=== PATIENT | female | born 1990 | race African-American/Black ===

== ENCOUNTER 2017-02-28 14:24 | Emergency (ER) | payer SELFPAY ==
[~2017-02-28] VITALS: Ht 172.7 cm; Wt 52.2 kg
--- NOTE | 2017-02-28 14:53 | PHYS DOC ---
Adult General Chief Complaint Chief Complaint: DENTAL PROBLEM HPI HPI Patient is a 26 year old female who presents with complaint of dental pain for the past 2 days. Patient states that she has a left mandibular molar that is broken and has been causing severe pain over the past 2 days. Patient has had history of dental caries and has had previous dental removal on the same side. Patient rates her pain currently is 10 out of 10. The patient states that she has had no fevers but has had swelling along the left side of her jaw. The patient states that the pain radiates towards her left ear. Patient states that she took a hydrocodone pill that was given to her by another individual states this did not help with her symptoms. Review of Systems Review of Systems Constitutional: Denies fever or chills [] Eyes: Denies change in visual acuity, redness, or eye pain [] HENT: Dental pain[] Respiratory: Denies cough or shortness of breath [] Cardiovascular: Denies chest pain or edema[] GI: Denies abdominal pain, nausea, vomiting, bloody stools or diarrhea [] : Denies dysuria or hematuria [] Musculoskeletal: Denies back pain or joint pain [] Integument: Denies rash or skin lesions [] Neurologic: Denies headache, focal weakness or sensory changes [] Current Medications Current Medications Current Medications Medications (Trade) Dose Ordered Sig/Raulito Start Time Stop Time Status Last Admin Dose Admin Bupivacaine HCl (Sensorcaine Mpf 0.5%) 10 ml 1X ONCE 02/28/17 15:10 02/28/17 15:11 Lidocaine HCl 20 ml 1X ONCE 02/28/17 15:10 02/28/17 15:11 Allergies Allergies Allergies Coded Allergies Type Severity Reaction Last Updated Verified No Known Drug Allergies 02/28/17 No Physical Exam Physical Exam Constitutional: Alert, afebrile, appears in moderate to severe discomfort. [] HENT: Normocephalic, atraumatic, bilateral external ears normal, oropharynx moist, multiple dental caries, tooth #18 with severe dental decay, tender to palpation, no gingival fluctuance noted, no significant jaw swelling noted, no oral exudates, nose normal. [] Eyes: PERRLA, EOMI, conjunctiva normal, no discharge. [] Neck: Normal range of motion, no tenderness, supple, no stridor. [] Cardiovascular:Heart rate regular rhythm, no murmur [] Lungs & Thorax: Bilateral breath sounds clear to auscultation [] Abdomen: Bowel sounds normal, soft, no tenderness, no masses, no pulsatile masses. [] Skin: Warm, dry, no erythema, no rash. [] Back: No tenderness, no CVA tenderness. [] Extremities: No tenderness, no cyanosis, no clubbing, ROM intact, no edema. [] Neurologic: Alert and oriented X 3, normal motor function, normal sensory function, no focal deficits noted. [] Current Patient Data Vital Signs Vital Signs Date Time Temp Pulse Resp B/P (MAP) Pulse Ox O2 Delivery O2 Flow Rate FiO2 02/28/17 14:25 98.6 83 20 98 Room Air Lab Results Not performed EKG EKG Not performed[] Radiology/Procedures Radiology/Procedures Not performed[] Course & Med Decision Making Course & Med Decision Making Pertinent Labs and Imaging studies reviewed. (See chart for details) Patient was given options of pain control including oral hydrocodone versus dental block. After careful consideration, the patient decided to have a dental block performed. The patient gave verbal consent for the procedure. A 10 mL syringe was used with a one-to-one solution of lidocaine 1%/bupivacaine 0.5%. Landmarks were identified prior to injection. A total of 7 mL of anesthetic was injected along the inner aspect of the left mandible with satisfactory results. No complications occurred during the procedure. The patient was provided with prescriptions for hydrocodone and penicillin VK. Advised follow-up with the patient's dentist in the next 2-3 days for reevaluation. Advised return emergency department for any worsening symptoms. Patient was understanding and in agreement with treatment plan. Dragon Disclaimer Dragon Disclaimer This chart was dictated in whole or in part using Voice Recognition software in a busy, high-work load, and often noisy Emergency Department environment. It may contain unintended and wholly unrecognized errors or omissions. Departure Departure: Impression: Primary Impression: Dental caries Additional Impression: Pain, dental Disposition: 01 HOME, SELF-CARE Condition: IMPROVED Referrals: PCPMACIEJ (PCP) Patient Instructions: Dental Pain Additional Instructions: Follow-up in 2-3 days with your dentist for reevaluation. Return to emergency department for any worsening symptoms. Scripts Penicillin V Potassium (PENICILLIN V POTASSIUM) 500 Mg Tablet 1 TAB PO QID, #40 TAB Prov: JANET ESCUDERO MD 02/28/17 Hydrocodone Bit/Acetaminophen (NORCO 5-325 TABLET) 1 Each Tablet 1-2 TAB PO Q4-6HRS Y for PAIN, #20 TAB Prov: JANET ESCUDERO MD 02/28/17 Problem Qualifiers JANET ESCUDERO MD Feb 28, 2017 14:53
[2017-02-28] MEDS ORDERED: BUPIVACAINE MPF 0.5% 30 ML VIAL. IJ ONE (15:00)
[2017-02-28] MEDS ORDERED: BUPIVACAINE MPF 0.5% 10 ML VIAL. IJ ONE (15:10)
[2017-02-28] MEDS ORDERED: LIDOCAINE 1% Multi-Dose 20 ML VIAL. IJ ONE (15:10)
[2017-02-28] MEDS ORDERED: PENI500T PO (15:12)
[2017-02-28] MEDS ORDERED: HYDR-971 PO (15:12)
[2017-02-28 15:15] VITALS: BP 108/72
== END 2017-02-28 15:15 | disposition home or self-care (01) ==
LOC: ER 14:24
DX: K02.9 Dental caries, unspecified (principal); M26.69 Other specified disorders of temporomandibular joint
CPT/HCPCS: 64400; 99284; J3490

== ENCOUNTER 2017-03-02 00:59 | Emergency (ER) | payer SELFPAY ==
[~2017-03-02] VITALS: Ht 172.7 cm; Wt 50.3 kg
[~2017-03-02 00:59] MED LIST: HYDR-971 PO; PENI500T PO
--- NOTE | 2017-03-02 01:55 | PHYS DOC ---
General Chief Complaint: DENTAL PROBLEM Stated Complaint: DENTAL PAIN Time Seen by MD: 01:19 Source: patient, old records Exam Limitations: no limitations Problems: History of Present Illness Initial Comments Pt is 26/F to ED requesting pain control. Pt seen here two days ago for tooth #18 pain/caries, dental block performed with good analgesia discharged home with norco 5mg and PCN. Pt states she was seen earlier today at "hospital" with nausea and abdominal discomfort, it was determined that she took meds without food. Since then pt says she's been scared to take norco, has plenty left but fears she will get sick. No fever/chills/malaise or vomitting, had nausea only with meds as stated. VSS in ED, she is requesting analgesia. Has not scheduled dental evaluation. Timing/Duration: other Severity: severe Location: dental Prearrival Treatment: over the counter meds, prescription meds Modifying Factors: improves with other Associated Symptoms: tooth pain Allergies: Coded Allergies: No Known Drug Allergies (Unverified , 03/02/17) Past Medical History Medical History: other (anemia) Surgical History: other (TL) Social History Smoker: cigarettes Alcohol: none Drugs: none Constitutional: denies chills, denies diaphoresis, denies fever, denies malaise Ears: denies dizziness, denies pain, denies tinnitus Nose: denies clots, denies congestion, denies epistaxis Mouth: see HPI, denies swelling, denies purulent discharge Throat: denies pain, denies swelling, denies neck stiffness, denies painful swallowing, denies difficulty with fluids Respiratory: denies cough, denies shortness of breath Cardiovascular: denies chest pain, denies palpitations Gastrointestinal: see HPI Neurological: denies headache, denies numbness, denies paresthesia Physical Exam General Appearance: moderate distress, thin Eyes: bilateral eye normal inspection, bilateral eye PERRL, bilateral eye EOMI Ears: bilateral ear auricle normal, bilateral ear canal normal, bilateral ear TM normal Nose: normal inspection Mouth/Throat: other (tooth #18 severe decay, no gingival swell/purulence/bony TTP airway patent) Neck: non-tender, supple, trachea midline Cardiovascular/Respiratory: normal peripheral pulses, normal breath sounds, no respiratory distress Neurologic/Psychiatric: 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 Pt obviously uncomfortable, states pain 10/10. No evidence osteomyelitis, offered IM meds if pt could get a ride home which she did. Dilaudid 1mg and toradol 60mg IM with resolution of pain pt left with friend driving her home. 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 Pt expressed agreement/understanding. Advised to stop smoking. Departure Time of Disposition: 01:49 Disposition: 01 HOME, SELF-CARE Diagnosis: pain control, dental caries Condition: GOOD Patient Instructions: Dental Caries Additional Instructions: No driving or operating machinery while under influence of sedative medications. OTC ibuprofen 600mg every 6 hours. Continue current penicillin and norco. Aggressive hydration with gatorade, water. Rx: zofran odt (this medication takes about an hour to take effect) To avoid GI symptoms you've experienced with medications: Take medications an hour apart. Take medications with food. Not a few crackers, but half a sandwich or equivalent to avoid adverse reaction you described. No hydrocodone within 2 hours of ED discharge to avoid reaction with pain medication received in ED. You must follow up with a dentist to resolve this condition. Antibiotics and pain medications will help you get by but will not treat this condition. Call Friday morning to schedule "next available appointment." Return to ED with new or changing symptoms as discussed. DIRK CHADWICK DO Mar 02, 2017 01:55
[2017-03-02] MEDS ORDERED: HYDROmorphone PF 1 MG/ML DISP.SYRIN IM ONE (02:00)
[2017-03-02] MEDS ORDERED: KETOROLAC 60 MG/2 ML VIAL. IM ONE (02:00)
[2017-03-02] MEDS ORDERED: ONDA4TAB10 PO (02:04)
[2017-03-02 02:10] VITALS: BP 114/80
[2017-03-02] MEDS ORDERED: ONDANSETRON 4MG ODT 4TABLET STARTPACK. PO ONE (02:30)
== END 2017-03-02 02:14 | disposition home or self-care (01) ==
LOC: ER 00:59
DX: K02.9 Dental caries, unspecified (principal); F17.210 Nicotine dependence, cigarettes, uncomplicated; Z86.2 Personal history of diseases of the blood and blood-forming organs and certain disorders involving the immune mechanism
CPT/HCPCS: 96372; 99284; J1170; J1885; Q0162

== ENCOUNTER 2017-07-25 16:37 | Emergency (ER) | payer SELFPAY ==
[~2017-07-25] VITALS: Ht 172.7 cm; Wt 52.2 kg
[~2017-07-25 16:37] MED LIST changes: +ONDA4TAB10 PO
[2017-07-25] MEDS ORDERED: HYDR-971 PO (17:13)
[2017-07-25] MEDS ORDERED: PENI500T PO (17:13)
[2017-07-25] MEDS ORDERED: NAPR-514 PO (17:13)
--- NOTE | 2017-07-25 17:13 | PHYS DOC ---
Past History Past Medical History: No Pertinent History Past Surgical History: Tubal ligation, Other Alcohol Use: Occasionally Drug Use: None Adult General Chief Complaint Chief Complaint: DENTAL PROBLEM HPI HPI 26-year-old smoking female patient complaining of left lower jaw for the last 3 days as a constant pain with radiation to the left ear. Patient rated his pain 10 over 10 he has had broken tooth and did not have money to follow with the dentist. 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 Patient was seen in this emergency room previously with the same problem in two other locations. Denies fever and chills, nausea and vomiting, problems with swallowing. Review of Systems Review of Systems Constitutional: Denies fever or chills [] Eyes: Denies change in visual acuity, redness, or eye pain [] HENT: Denies nasal congestion or sore throat , reports dental pain[] Respiratory: Denies cough or shortness of breath [] Cardiovascular: No additional information not addressed in HPI [] GI: Denies abdominal pain, nausea, vomiting, bloody stools or diarrhea [] : Denies dysuria or hematuria [] Musculoskeletal: Denies back pain or joint pain [] Integument: Denies rash or skin lesions [] Neurologic: Denies headache, focal weakness or sensory changes [] Endocrine: Denies polyuria or polydipsia [] All other systems were reviewed and found to be within normal limits, except as documented in this note. Allergies Allergies Allergies Coded Allergies Type Severity Reaction Last Updated Verified No Known Drug Allergies 07/25/17 No Physical Exam Physical Exam Constitutional: Mild distress, non-toxic appearance, anxious [] HENT: Normocephalic, atraumatic, bilateral external ears normal, oropharynx moist, no oral exudates, nose normal, poor dental hygiene, left lower molar #3 cavity and tenderness without abscess. [] Eyes: PERRLA, EOMI, conjunctiva normal, no discharge. [] Neck: Normal range of motion, no tenderness, supple, no stridor. [] Cardiovascular:Heart rate regular rhythm, no murmur [] Lungs & Thorax: Bilateral breath sounds clear to auscultation [] Neurologic: Alert and oriented X 3, normal motor function, normal sensory function, no focal deficits noted. [] Psychologic: Anxious and agitated Current Patient Data Vital Signs Vital Signs Date Time Temp Pulse Resp B/P (MAP) Pulse Ox O2 Delivery O2 Flow Rate FiO2 07/25/17 16:47 98.4 65 18 99 Room Air EKG EKG [] Radiology/Procedures Radiology/Procedures [] Course & Med Decision Making Course & Med Decision Making Evaluation of patient in ER showed 26-year-old female patient with complaining of dental pain for 3 days with history of previous dental pain. Patient wanted to have dental block but when I tried to give her dental block she moved my hand and her head and did not tolerate the procedure and complaining of increasing of her pain and crying and calling for help frequently. Prescription for naprosyn and pen-vee K and norco was given but she refused to leave ER. Finally patient agreed to have Toradol IM and leave emergency room with instruction to follow with her dentist. Dragon Disclaimer Dragon Disclaimer This electronic medical record was generated, in whole or in part, using a voice recognition dictation system. Departure Departure: Impression: Primary Impression: Dentalgia Additional Impressions: Infected dental carries Anxiety Disposition: HOME, SELF-CARE ([id number]) Condition: STABLE Referrals: PCP,NO (PCP) Patient Instructions: Dental Caries, Smoking Cessation, Tips For Success, Toothache-Brief Additional Instructions: Follow-up with dentist in 2-3 days Quit smoking Follow-up with your primary care physician in 3-5 days Return to ER if not getting better Scripts Hydrocodone Bit/Acetaminophen (NORCO 5-325 TABLET) 1 Each Tablet 1 TAB PO PRN Q6HRS Y for PAIN, #10 TAB 0 Refills Prov: SAMANTHA DENNISON MD 07/25/17 Naproxen (NAPROXEN) 500 Mg Tablet 1 TAB PO BID, #14 TAB Prov: SAMANTHA DENNISON MD 07/25/17 Penicillin V Potassium (PENICILLIN V POTASSIUM) 500 Mg Tablet 1 TAB PO TID, #30 TAB Prov: SAMANTHA DENNISON MD 07/25/17 Problem Qualifiers SAMANTHA DENNISON MD Jul 25, 2017 17:13
[2017-07-25] MEDS ORDERED: KETOROLAC 60 MG/2 ML VIAL. IM ONE (17:45)
[2017-07-25 17:48] VITALS: BP 122/80
== END 2017-07-25 17:53 | disposition home or self-care (01) ==
LOC: ER 16:37
DX: K02.9 Dental caries, unspecified (principal); K04.7 Periapical abscess without sinus; F41.9 Anxiety disorder, unspecified
CPT/HCPCS: 64400; 96372; 99284; J1885; 99283

== ENCOUNTER 2017-07-26 19:54 | Emergency (ER) | payer SELFPAY ==
[2017-07-25 17:48] VITALS: BP 122/80
[~2017-07-26 19:54] MED LIST changes: +NAPR-514 PO
== END 2017-07-26 23:52 | disposition left against medical advice (07) ==
LOC: ER 19:54
DX: K08.89 Other specified disorders of teeth and supporting structures (principal); Z53.21 Procedure and treatment not carried out due to patient leaving prior to being seen by health care provider

== ENCOUNTER 2018-02-11 10:55 | Emergency (ER) | payer SELFPAY ==
[2018-02-11] MEDS ORDERED: LIDOCAINE 1% PF 30 ML VIAL. INJ ONE (11:30)
[2018-02-11] MEDS ORDERED: HYDR-971 PO (12:39)
[2018-02-11] MEDS ORDERED: SULF1TAB24 PO (12:39)
[2018-02-11 12:40] VITALS: BP 112/70
--- NOTE | 2018-02-11 12:40 | PHYS DOC ---
Past History Past Medical History: No Pertinent History Past Surgical History: Tubal ligation, Other Smoking: Cigarettes Alcohol Use: Occasionally Drug Use: None Adult General Chief Complaint Chief Complaint: SKIN PROBLEM HPI HPI Patient is a 27 year old female who presents with complaining of abscess in genital area for the last 1 week that gradually getting worse. Patient states she has had history of abscess in this area multiple times with drainage of abscess. She denies fever and chills, drainage of pus, vaginal bleeding or discharge, urinary symptoms, nausea and vomiting, . Review of Systems Review of Systems Constitutional: Denies fever or chills [] Eyes: Denies change in visual acuity, redness, or eye pain [] HENT: Denies nasal congestion or sore throat [] Respiratory: Denies cough or shortness of breath [] Cardiovascular: No additional information not addressed in HPI [] GI: Denies abdominal pain, nausea, vomiting, bloody stools or diarrhea [] : Denies dysuria or hematuria [] Musculoskeletal: Denies back pain or joint pain [] Integument: Denies rash, reports abscess Neurologic: Denies headache, focal weakness or sensory changes [] Endocrine: Denies polyuria or polydipsia [] All other systems were reviewed and found to be within normal limits, except as documented in this note. Current Medications Current Medications Current Medications Medications (Trade) Dose Ordered Sig/Raulito Start Time Stop Time Status Last Admin Dose Admin Lidocaine HCl (Lidocaine 1% Pf) 30 ml 1X ONCE 02/11/18 11:30 02/11/18 11:43 DC Allergies Allergies Allergies Coded Allergies Type Severity Reaction Last Updated Verified No Known Drug Allergies 07/25/17 No Physical Exam Physical Exam Constitutional: Well developed, well nourished, mild distress, non-toxic appearance, anxious. [] HENT: Normocephalic, atraumatic] Eyes: PERRLA, EOMI, conjunctiva normal, no discharge. [] Neck: Normal range of motion, no tenderness, supple, no stridor. [] Cardiovascular:Heart rate regular rhythm, no murmur [] Lungs & Thorax: Bilateral breath sounds clear to auscultation [] Abdomen: Bowel sounds normal, soft, no tenderness, no masses, no pulsatile masses. [] Skin: Warm, dry, no rash, 1 x 2 cm abscess in right side of pubis area with erythema and fluctuation and tenderness. [] Back: No tenderness, no CVA tenderness. [] Extremities: No tenderness, no cyanosis, no clubbing, ROM intact, no edema. [] Neurologic: Alert and oriented X 3, normal motor function, normal sensory function, no focal deficits noted. [] Psychologic: Affect anxious, judgement normal, mood normal. [] Current Patient Data Vital Signs Vital Signs Date Time Temp Pulse Resp B/P (MAP) Pulse Ox O2 Delivery O2 Flow Rate FiO2 02/11/18 11:00 98.2 84 18 98 Room Air EKG EKG [] Radiology/Procedures Radiology/Procedures [] Course & Med Decision Making Course & Med Decision Making discharge: I've spoken with the patient and/or caregivers. I've explained the patient's condition, diagnosis and treatment plan based on information available to me at this time. I've answered the patient's and/or caregivers questions and addressed any concerns. The patient and/or caregivers have a good understanding the patient's diagnosis, condition and treatment plan as can be expected at this point. Vital signs have been stabilized. The patient's condition is stable for discharge from the emergency department. The patient will pursue further outpatient evaluation with her primary care provider or other designated consulting physician as outlined in the discharge instructions. Patient and/or caregivers are agreeable to this plan of care and follow-up instructions have been explained in detail. The patient and/or caregivers have received these instructions in written format and expressed understanding of these discharge instructions. The patient and her caregivers are aware that if any significant change in condition or worsening of symptoms should prompt him to immediately return to this of the closest emergency department. If an emergent department is not readily available I would encourage him to call 911. Chata Disclaimer Dragon Disclaimer This electronic medical record was generated, in whole or in part, using a voice recognition dictation system. Incision and Drainage Indication: Pubis area abscess Procedure: The patient was positioned appropriately and the skin over the incision site was cleaned with alcohol]. Local anesthesia was percent lidocaine. An incision was then made over the right pubis area abscess] and mild amount of pus material was expressed. Loculations were removed. The drainage cavity was then irrigated with normal saline. The patients tetanus status up-to-date. The patient tolerated the procedure well. Complications: none Departure Departure: Impression: Primary Impression: Abscess of pubic region Additional Impressions: Tobacco abuse Tobacco abuse counseling Anxiety Disposition: HOME, SELF-CARE (at 1240) Condition: IMPROVED Referrals: PCP,NO (PCP) Patient Instructions: Abscess, Abscess, Care After, Community-Associated MRSA, Smoking Cessation, Tips For Success Additional Instructions: Change dressing as needed Drink plenty of liquids Follow-up with your primary care physician in 3-5 days Return to ER if not getting better Scripts Hydrocodone Bit/Acetaminophen (NORCO 5-325 TABLET) 1 Each Tablet 1 TAB PO PRN Q6HRS PRN for PAIN, #10 TAB 0 Refills Prov: SAMANTHA DENNISON MD 02/11/18 Sulfamethoxazole/Trimethoprim (BACTRIM DS TABLET) 1 Each Tablet 1 TAB PO BID, #14 TAB Prov: SAMANTHA DENNISON MD 02/11/18 Problem Qualifiers SAMANTHA DENNISON MD Feb 11, 2018 12:40
[2018-02-11] MEDS ORDERED: HYDROcodone/APAP 5/325MG 1 TAB TABLET PO ONE (12:45)
== END 2018-02-11 12:49 | disposition home or self-care (01) ==
LOC: ER 10:55
DX: L02.214 Cutaneous abscess of groin (principal); F41.9 Anxiety disorder, unspecified; F17.210 Nicotine dependence, cigarettes, uncomplicated; Z71.6 Tobacco abuse counseling
CPT/HCPCS: 10060; 99283; J2001